=== PATIENT | male | born 1985 | race Two or more races ===

== ENCOUNTER 2020-06-01 17:34 | Emergency (ER) | payer MEDICAID ==
[~2020-06-01] VITALS: Ht 170.2 cm; Wt 70.8 kg
--- NOTE | 2020-06-01 17:52 | NUR ---
Pt reports he has sore throat and tongue redness x3 months. Pt verbalizes he may have an infection. Pt had a COVID-19 Test x1 week ago and results are negative. Pt has noticeable bumps in the posterior tongue. Pt states he has spots on the palate of his mouth. Pt also reports AGUILAR and chills, pt is afebrile. Pt was seen by his PCP and was prescribed antibiotics Amoxicillin and Ceftriaxone. Pt states he has been compliant with his medications. Pt also takes pantoprazole.
[2020-06-01 18:06] VITALS: BP 124/84
--- NOTE | 2020-06-01 18:11 | Emergency Room Report ---
History of Present Illness General Chief Complaint: Sore Throat Source: Patient Present Illness HPI 34-year-old male presents to the emergency department complaining of 6 out of 10 severity persistent sore throat and mouth irritation times over 3 weeks. Patient reports he is taking antibiotics as well as some antiacid medications. Patient reports he was already evaluated by his PCP for this condition. Patient reports he had some blood work done but has not seemed to have any relief of his symptoms. Patient reports he is having worsening of his sensitivity in oropharyngeal mucosa. Patient reports he has a lot of small tiny bumps in his mouth. He denies past on the back of his throat. Patient has paperwork showing that he was also tested for H. pylori. There is no results. It does appear that patient is currently taking regimen consistent with H. pylori infection. He is reporting some chills denies fevers. He reports intermittent headaches and dry itchy eyes. Patient is also reporting dry mouth. He denies any significant past medical history denies history of diabetes. He denies swelling of the lips or tongue. He reports pain with swallowing. He denies wheezing, shortness of breath or difficulty tolerating oral foods or foods. He denies significant changes in weight. He denies rashes. He is reporting some cracking of the skin to the bilateral corners of the mouth. No other aggravating or relieving factors at this time. 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 COVID-19 Screening: Negative COVID-19 COVID-19 Testing Source: [facility] Patient History Past Medical History: see triage record Past Surgical History: none Pertinent Family History: none Reviewed Nursing Documentation: PMH: Agreed; PSxH: Agreed Nursing Documentation-PMH Hx Cardiac Problems: No Review of Systems All Other Systems: negative except mentioned in HPI Physical Exam Vital Signs Date Time Temp Pulse Resp B/P (MAP) Pulse Ox O2 Delivery O2 Flow Rate FiO2 06/01/20 17:40 98.2 67 18 124/84 (97) 97 Room Air Sp02 EP Interpretation: reviewed, normal General Appearance: no apparent distress, alert, GCS 15, non-toxic Head: normocephalic, atraumatic Eyes: bilateral eye normal inspection, bilateral eye PERRL ENT: hearing grossly normal, no angioedema, normal voice, TMs + canals normal, uvula midline, moist mucus membranes, pharyngeal erythema, other - mucositis of the buccal mucosa, and the posterior aspect of the tongue. There is minimal pharyngeal erythema, no tonisillar swelling or exudates. THere is an opaque white film on the tongue. bilateral angle chelitis noted. Neck: full range of motion, no meningismus, no bony tend, no carotid bruits Respiratory: chest non-tender, lungs clear, normal breath sounds, no respiratory distress, no accessory muscle use, no wheezing, speaking full sentences, other - no stridor Cardiovascular #1: regular rate, rhythm, no edema Gastrointestinal: normal bowel sounds, non tender, soft, non-distended, no guarding Musculoskeletal: normal range of motion, gait/station normal, non-tender Neurologic: alert, motor strength/tone normal, oriented x3, sensory intact, responsive, speech normal Psychiatric: judgement/insight normal Skin: no rash, normal color Lymphatic: no adenopathy Medical Decision Making PA Attestation Dr. Marks Is my supervising Physician whom patient management has been discussed with. Diagnostic Impression: Primary Impression: Esophagitis Additional Impression: Stomatitis ER Course 34-year-old male presents to the emergency department complaining of 6 out of 10 severity persistent sore throat and mouth irritation times over 3 weeks. Patient reports he is taking antibiotics as well as some antiacid medications. Patient reports he was already evaluated by his PCP for this condition. Patient reports he had some blood work done but has not seemed to have any relief of his symptoms. Patient reports he is having worsening of his sensitivity in oropharyngeal mucosa. Patient reports he has a lot of small tiny bumps in his mouth. He reports noticing a white film on his tongue and back of his throat.. Patient has paperwork showing that he was also tested for H. pylori. There is no results. It does appear that patient is currently taking regimen consistent with H. pylori infection. He is reporting some chills denies fevers. He reports intermittent headaches and dry itchy eyes. Patient is also reporting dry mouth. He denies any significant past medical history denies history of diabetes. He d enies swelling of the lips or tongue. He reports pain with swallowing. He denies wheezing, shortness of breath or difficulty tolerating oral foods or foods. He denies significant changes in weight. He denies rashes. He is reporting some cracking of the skin to the bilateral corners of the mouth. No other aggravating or relieving factors at this time. Ddx considered but are not limited to: pharyngitis, strep, DRESSAGE INSTRUCTOR, ludwigs angina, URI , Sjogren's syndrome, diabetes, GERD, H. pylori, esophagitis, vitamin defi ciency the rash just in few. Vital signs: are WNL, pt. is afebrile H&PE are most consistent with: Esophagitis caused by either acid reflux versus candidiasis. Physical exam does not suggest strep throat at this time no evidence of acute impending airway compromise no evidence of DRESSAGE INSTRUCTOR. There is notable mucositis on the posterior tongue and pharynx ORDERS: None required at this time as the diagnosis is clinical ED INTERVENTIONS: none required at this time. I discussed with patient there are multiple factors that need to be evaluated on an outpatient primary care basis. I discussed with this patient that I do not identify an acute emergent condition at this time we will also try course of treatment for possible candidiasis being the cause. Also discussed with patient that he needs to start taking supplemental vitamins. DISCHARGE: At this time pt. is stable for d/c to home. Will provide printed patient care instructions, and any necessary prescriptions. Care plan and follow up instructions have been discussed with the patient prior to discharge. Last Vital Signs Date Time Temp Pulse Resp B/P (MAP) Pulse Ox O2 Delivery O2 Flow Rate FiO2 06/01/20 18:06 98.2 18 124/84 97 Room Air 06/01/20 17:40 67 Disposition: HOME, SELF-CARE Condition: Stable Scripts Multivitamins* (MULTIVITAMINS*) 1 Each Tablet 1 TAB ORAL DAILY for SUPPLEMENT for 30 Days, #30 TAB 0 Refills Prov: Lori Mcdaniel 06/01/20 Nystatin* (NYSTATIN*) 100,000 Unit/1 Ml Oral.susp 5 ML ORAL FOUR TIMES A DAY for 7 Days, #140 ML Swish in the mouth and retain for as long as possible (several minutes) before swallowing Prov: Lori Mcdaniel 06/01/20 Referrals: [facility] Patient Instructions: Esophagitis Additional Instructions: Take medications as directed. Follow up with a Primary Care Provider in 3-5 days, even if your symptoms have resolved. --Please review list of primary care clinics, if you do not already have a primary care provider Return sooner to ED if new symptoms occur, or current symptoms become worse. - Please note that this Emergency Department Report was dictated using [employer] win[employer] technology software, occasionally this can lead to erroneous entry secondary to interpretation by the dictation equipment. Lori Mcdaniel Jun 01, 2020 18:11
[2020-06-01] MEDS ORDERED: NYSTATIN100000 UN1 ORAL (18:48)
[2020-06-01] MEDS ORDERED: MULTIVITAMINS1 EAC2 ORAL (18:48)
== END 2020-06-01 19:30 | disposition home or self-care (01) ==
LOC: EMR 19:23
DX: K20.90 Esophagitis, unspecified without bleeding (principal); K12.1 Other forms of stomatitis
CPT/HCPCS: 99282